=== PATIENT | female | born 1995 ===

== ENCOUNTER 2023-02-07 14:26 | Inpatient (IN) | payer MEDICAID ==
[~2023-02-07] VITALS: Ht 162.6 cm; Wt 74.5 kg
[2023-02-15] VITALS (17 sets, daily range): BP systolic 96–140; BP diastolic 45–91; PULSE 49–77; TEMP 98.1–98.3
[2023-02-15] MEDS ORDERED: PRENATAL TABLET PO (10:14)
[2023-02-15 11:55] LABS: BASO # 0.1 K/mm3 (0.0-0.2); BASO % 0.9 % (0.0-2.0); EOS % 0.3 % (0.0-4.0); GRAN # 3.9 K/mm3 (1.4-6.5); GRAN % 55.3 % (42.2-75.2); HEMOGLOBIN 11.6 g/dl (12.5-16.0); LYMPH # 2.5 K/mm3 (1.2-3.4); LYMPH % 35.3 % (20.0-51.0); MEAN CELL VOLUME 83 fl (80.0-100.0); MEAN CORPUSCULAR HEMOGLOBIN 26 pg (27-31); MEAN CORPUSCULAR HGB CONC 32 g/dl (33.0-37.0); MEAN PLATELET VOLUME 9.7 fl (7.4-10.4); MONO # 0.5 K/mm3 (0.1-0.6); MONO % 7.3 % (1.7-9.3); PLATELET COUNT 325 K/mm3 (130-400); RED BLOOD COUNT 4.41 M/mm3 (4.10-5.30)
[2023-02-15 11:57] LABS: HEMATOCRIT 36.6 % (37.0-47.0)
[2023-02-16 04:07] VITALS: BP 101/55; PULSE 58; TEMP 97.7
[2023-02-16 08:45] VITALS: BP 104/62; PULSE 70; TEMP 98
--- NOTE | 2023-02-16 10:23 | NUR ---
Initial visit; Parents thanked Cost Estimating Engineer for looking in on them and offering congratulations and God's blessings for the of their son. Cost Estimating Engineer thanked family for choosing [facility]. Cost Estimating Engineer gave them time to discuss if they would like Cost Estimating Engineer to return to offer spiecial "Blessings" for their son.
[2023-02-16 11:47] VITALS: BP 112/68; PULSE 77; TEMP 98.8
[2023-02-16 15:09] VITALS: BP 107/64; PULSE 83; TEMP 98.7
[2023-02-16 20:00] VITALS: BP 107/67; PULSE 69; TEMP 98
[2023-02-17] MEDS ORDERED: MOTRIN 800800 MG/TAB PO (07:08)
[2023-02-17] MEDS ORDERED: PERCOCET 325 MG1 TA2 PO (07:08)
[2023-02-17 08:00] VITALS: BP 123/75; PULSE 63; TEMP 97.7
[2023-02-17 17:15] VITALS: BP 120/77; PULSE 79; TEMP 97.5
--- NOTE | 2023-02-17 18:25 | NUR ---
Report recieved at this time. Infant at bedside while being cared for by mother. Patient asleep in bed. Will review POC and update whiteboard once patient has woke from her nap.
[2023-02-17 19:45] VITALS: BP 120/79; PULSE 92; TEMP 97.8
--- NOTE | 2023-02-17 19:45 | NUR ---
Updated whiteboard and reviewed POC. VS and assessment completed. Ambulated with cane at this time. Encouraged to stand upright with ambulation and not hunch over. Requests for infant to go to the nursery and be fed by staff through the night. States she plans to shower and rest in the recliner.
[2023-02-18 07:10] VITALS: BP 106/67; PULSE 74; TEMP 98.6
== END 2023-02-18 11:07 | disposition home or self-care (01) | DRG 787 ==
LOC: OB 02-15 09:50
PROVIDERS: ADMIT Obstetrics & Gynecology
PROC: 10D00Z1 Extraction of Products of Conception, Low, Open Approach (ICD-10-PCS; principal; 2023-02-15)
DX: O48.0 Post-term pregnancy (principal); O98.32 Other infections with a predominantly sexual mode of transmission complicating childbirth; O34.211 Maternal care for low transverse scar from previous cesarean delivery; A60.09 Herpesviral infection of other urogenital tract; Z3A.40 40 weeks gestation of pregnancy; Z37.0 Single live birth; Z88.1 Allergy status to other antibiotic agents; Z88.2 Allergy status to sulfonamides; Z88.8 Allergy status to other drugs, medicaments and biological substances
CPT/HCPCS: J0171; J0665; J0690; J1885; J2175; J2371; J2405; J2590; J7120